=== PATIENT | female | born 1995 | race Caucasian/White ===

== ENCOUNTER 2017-02-25 11:18 | Day surgery (SDC) | payer OTHER ==
[2017-02-25 11:39] VITALS: RESP 16; TEMP 99.2
[2017-02-25] MEDS ORDERED: LACTATED RINGERS 1,000 ML IV ONE (11:39)
[2017-02-25] MEDS ORDERED: LIDOCAINE 1% 20 ML VIAL (10MG/ML) FOR IV START INTRADERMA ONE (11:39)
[2017-02-25] MEDS ORDERED: LACTATED RINGERS 1,000 ML IV SCH (11:40)
[2017-02-25] MEDS ORDERED: LIDOCAINE 1% 20 ML VIAL (10MG/ML) FOR IV START INTRADERMA PRN (11:40)
[2017-02-25] MEDS ORDERED: MIDAZOLAM 2 MG/2 ML VIAL ONE (12:19)
[2017-02-25] MEDS ORDERED: GLYCOPYRROLATE 0.2 MG/ML 2 ML VIAL ONE (12:19)
[2017-02-25] MEDS ORDERED: fentaNYL (PF) 50 MCG/ML 2 ML AMP ONE (12:19)
[2017-02-25] MEDS ORDERED: PROPOFOL 10 MG/ML 20 ML VIAL IV ONE (12:19)
[2017-02-25] MEDS ORDERED: LIDOCAINE 1% INJ 10MG/ML (20 ML MDV) ONE (12:19)
[2017-02-25 13:06] VITALS: BP 124/66; PULSE 78
--- NOTE | 2017-02-25 13:06 | P.PCN ---
Date of Procedure: 02/25/17 Preoperative Diagnosis: Postoperative Diagnosis: Procedure(s) Performed: Procedures: 1. Esophagogastroduodenoscopy and biopsy. 2. Colonoscopy and biopsy. Preoperative diagnosis: Abdominal and atypical chest pains and change in bowel habits. Postoperative diagnosis: 1. Mild antral gastritis. 2. Normal colon and terminal ileum. 3. Multiple biopsies obtained from the duodenum, antrum, esophagus, terminal ileum and random colon. Preparation: HalfLytely prep. Sedation: Was provided by anesthesia. Brief clinical history: The patient is a 22-year-old female who I have evaluated in the office earlier this month regarding chronic abdominal pain and diarrhea which she had since age 13 and getting worse within the last year. The patient had cholecystectomy at age 15. She has not responded to Prilosec which was started around 2 months ago for her epigastric and atypical chest pains. This evaluation is to assess for esophagitis, complicated reflux disease , inflammatory bowel disease or other pathology. Procedure: With the patient on her left lateral decubitus position and after informed consent and adequate sedation, I passed the Olympus-GIF 160 video upper endoscope through the cricopharyngeus down the esophagus. GE junction was around 38 cm from the incisors then the endoscope was passed to the stomach which was insufflated with air and inspected in detail including the retroflex view in the cardia. There was some mottling and erythema in the antrum but no ulcers or erosions. Pyloric channel, duodenal bulb, post bulbar area and descending duodenum appeared within normal limits. Because of her symptoms, I obtained biopsies from the duodenum, antrum and esophagus then the endoscope was withdrawn and I proceeded with the colonoscopy. Perianal area did not show any fissures or fistulas. There were no masses felt on digital rectal examination. The Olympus CFQ 160L video colonoscope was then inserted in the rectum in the usual fashion and advanced to the cecum. I intubated the ileocecal valve and examined the terminal ileum. Terminal ileum and colon appeared healthy with no edema, erythema, friability, ulceration, exudation or spontaneous bleeding. I obtained biopsies from the terminal ileum and randomly from the colon then I retroflexed the endoscope in the rectum before the endoscope was withdrawn. The patient tolerated the procedure well. Plan: The patient and her mom were reassured. Will await biopsy results. I will see her in the office as planned and I will keep you updated on her progress. Implants: Indications for Procedure: Operative Findings: Description of Procedure:
== END 2017-02-25 13:24 | disposition home or self-care (01) ==
LOC: ORWHC2ENDO 11:18
DX: K29.50 Unspecified chronic gastritis without bleeding (principal); R19.4 Change in bowel habit; K21.9 Gastro-esophageal reflux disease without esophagitis; Z79.899 Other long term (current) drug therapy
CPT/HCPCS: 81025; 88305; 88342; 84703; 45380; 43239; J2250; J2001; J3010; J2704

== ENCOUNTER 2017-03-15 18:51 | Emergency (ER) | payer OTHER ==
[2017-03-15 19:09] VITALS: RESP 16
[2017-03-15] MEDS ORDERED: SODIUM CHLORIDE 0.9% 500 ML IV STA (20:14)
[2017-03-15] MEDS ORDERED: SODIUM CHLORIDE 0.9% 1,000 ML IV STA (20:14)
[2017-03-15] MEDS ORDERED: HYDROmorphone 1 MG/ML 1 ML SYRINGE IVP STA (20:14)
[2017-03-15] MEDS ORDERED: KETOROLAC 30 MG/ML 1 ML VIAL IVP STA (20:14)
[2017-03-15] MEDS ORDERED: METOCLOPRAMIDE 5 MG/ML 2 ML VIAL IVP STA (20:14)
--- NOTE | 2017-03-15 20:21 | ED ---
Headache HPI - General Chief Complaint: Headache Stated Complaint: headache, visual disturbance, sent by med ex Time Seen by Provider: 03/15/17 19:46 Mode of arrival: ambulatory Limitations: no limitations - History of Present Illness Initial Comments: 22 years old female presents with headache, she stated it feels like her headache is originating from her [facility] no neck pain, headache is now radiating down the back she has no neck stiffness which started when she was at work she got nauseous left work around 5 PM and when she was driving home she felt like she was lightheaded she was discharged for his chronic. She denies any fever no chills no neck stiffness no chest pain or shortness of breath no abdominal pain no frequency urgency dysuria - Related Data Home Medications Medication Instructions Recorded Confirmed Omeprazole [PriLOSEC] 20 mg PO HS 02/25/17 03/15/17 Norethindrone AC-Eth Estradiol 1 tab PO HS 03/15/17 03/15/17 [Microgestin 21 1.5-30 Tab] Sertraline [Zoloft] 50 mg PO HS 03/15/17 03/15/17 Allergies Allergy/AdvReac Type Severity Reaction Status Date / Time No Known Allergies Allergy Verified 03/15/17 20:46 Review of Systems ROS Statement: Those systems with pertinent positive or pertinent negative responses have been documented in the HPI. ROS Other: All systems not noted in ROS Statement are negative. Past Medical History Additional Past Medical History / Comment(s): NEXT [employer]AN IMPLANT LEFT ARM History of Any Multi-Drug Resistant Organisms: None Reported Past Surgical History: Cholecystectomy Past Anesthesia/Blood Transfusion Reactions: Motion Sickness Past Psychological History: Anxiety, Depression Smoking Status: Never smoker Past Alcohol Use History: None Reported, Rare Past Drug Use History: None Reported - Past Family History Mother Family Medical History: Cancer Additional Family Medical History / Comment(s): BREAST General Exam - General Exam Comments Initial Comments: General: The patient is awake and alert, severe distress Skin: Skin is warm and dry and no rashes or lesions are noted. Eye: Pupils are equal, round and reactive to light, extra-ocular movements are intact; there is normal conjunctiva bilaterally. Ears, nose, mouth and throat: There are moist mucous membranes and no oral lesions. Neck: The neck is supple, there is no tenderness or signs of meningeal irritation or meningitis Cardiovascular: There is a regular rate and rhythm. No murmur, rub or gallop is appreciated. Respiratory: To auscultation bilateral, no wheezing no rhonchi no distress respiratory morales noticed Gastrointestinal: Soft, non-distended, non-tender abdomen without masses or organomegaly noted. There is no rebound or guarding present. Bowel sounds are unremarkable. Back: There is no tenderness to palpation in the midline. There is no obvious deformity. Musculoskeletal: Normal ROM, no tenderness, There is no pedal edema. There is no calf tenderness or swelling. No cords were appreciated. Neurological: CN II-XII intact, Cranial nerves III through XII are intact. There are no obvious motor or sensory deficits. Coordination appears grossly intact. Speech is normal. Psychiatric: Cooperative, appropriate mood & affect, normal judgment. Limitations: no limitations Course Vital Signs 03/15/17 19:04 Temperature 99.4 F Pulse Rate 71 Respiratory 16 Rate Blood Pressure 128/88 O2 Sat by Pulse 99 Oximetry EKG is normal sinus rhythm ventricular rate is 72 HI interval is 154 QRS duration is 82 QT/QTc is 386/422) EKG does not reveal any ST elevation or ST depression At 08/21/1949 she feels her headache is 100% resolved and she wants to go Disposition Clinical Impression: Headache Disposition: HOME SELF-CARE Condition: Good Instructions: Acute Headache (ED) Additional Instructions: Tylenol or Motrin on an as-needed basis and follow up with her family doctor Referrals: Elo Jain MD [Primary Care Provider] - 1-2 days
--- NOTE | 2017-03-15 20:54 | CT ---
EXAMINATION TYPE: CT brain wo con DATE OF EXAM: 03/15/2017 COMPARISON: NONE HISTORY: c/o sharp head pains, blurred vision, dizziness CT DLP: 1082 mGycm. Automated Exposure Control for Dose Reduction was Utilized. TECHNIQUE: CT scan of the head is performed without contrast. FINDINGS: Ventricles of normal size. There is no mass effect nor midline shift. There is no sign of intracranial hemorrhage. The calvarium is intact. CONCLUSION: Normal unenhanced head CT scan.
[2017-03-15 22:00] VITALS: BP 108/70; PULSE 67; TEMP 97.4
== END 2017-03-15 21:59 | disposition home or self-care (01) ==
LOC: EC 18:51
DX: R51 Headache (principal); R11.0 Nausea; R42 Dizziness and giddiness; F41.9 Anxiety disorder, unspecified; F32.9 Major depressive disorder, single episode, unspecified; Z79.3 Long term (current) use of hormonal contraceptives; Z79.899 Other long term (current) drug therapy
CPT/HCPCS: 99284; 96374; 96375 ×2; 96361; 93005; 70450; J2765; J1885; J1170